=== PATIENT | female | born 1985 | race Caucasian/White ===

== ENCOUNTER 2020-04-05 21:07 | Emergency (ER) | payer OTHER, SELFPAY ==
[~2020-04-05] VITALS: Ht 170.2 cm; Wt 90.7 kg
[2020-04-05 21:08] VITALS: Ht 170.2 cm; Wt 90.7 kg
[2020-04-05 22:01] VITALS: BP 138/97
== END 2020-04-05 22:01 | disposition home or self-care (01) ==
LOC: ED 21:07
DX: B34.9 Viral infection, unspecified (principal); Z20.828 Contact with and (suspected) exposure to other viral communicable diseases
CPT/HCPCS: U0003-CS